=== PATIENT | female | born 1995 | race Caucasian/White ===

== ENCOUNTER 2017-11-23 16:27 | Emergency (ER) | payer OTHER ==
[~2017-11-23] VITALS: Ht 22.9 cm; Wt 76.7 kg
[2017-11-23] MEDS ORDERED: IV NORMAL SALINE 1,000ML 1,000 ML IV ONE (17:00)
[2017-11-23 17:22] LABS: BASO % 0 % (0-3); EOS % 0 % (0-3); HEMATOCRIT 45.6 % (36.0-47.0); HEMOGLOBIN 15.4 g/dL (12.0-15.5); LYMPH # 0.5 x10^3/uL (1.0-4.8); LYMPH % 6 % (24-48); MEAN CORPUSCULAR HEMOGLOBIN 29 pg (25-35); MEAN CORPUSCULAR HGB CONC 34 g/dL (31-37); MEAN CORPUSCULAR VOLUME 87 fL (79-100); MONO # 0.3 x10^3/uL (0.0-1.1); MONO % 3 % (0-9); NEUT # 8.4 x10^3uL (1.8-7.7); NEUT % 91 % (31-73); PLATELET COUNT 226 x10^3/uL (140-400); RED BLOOD COUNT 5.25 x10^6/uL (3.50-5.40); RED CELL DISTRIBUTION WIDTH 13.1 % (11.5-14.5); WHITE BLOOD COUNT 9.2 x10^3/uL (4.0-11.0)
--- NOTE | 2017-11-23 17:38 | ED.ADGEN ---
Past History Past Medical History: Other Additional Past Medical Histor: tachycardia Past Surgical History: No Surgical History Smoking: Non-smoker Alcohol Use: Occasionally Drug Use: None Adult General Chief Complaint Chief Complaint nausea, vomiting, diarrhea HPI HPI Patient is a 22 year old female who presents with nausea, vomiting and diarrhea. Pt states symptoms started earlier this morning, has vomited about 5- 6 times and had 2 watery stools. She only has abdominal cramping with the vomiting, none present at this time. She is not currently feeling nausea. She denies fevers, admits she "doesn't drink much water", denies dysuria or increased frequency. She reports h/o known tachycardia. Came in because she thought she was dehydrated. PCP is Dr. German. Review of Systems Review of Systems Constitutional: Denies fever or chills [] Eyes: Denies change in visual acuity, redness, or eye pain [] HENT: Denies nasal congestion or sore throat [] Respiratory: Denies cough or shortness of breath [] Cardiovascular: denies chest pain GI: per hpi : Denies dysuria or hematuria [] Musculoskeletal: Denies back pain or joint pain [] Integument: Denies rash or skin lesions [] Neurologic: Denies headache, focal weakness or sensory changes [] Current Medications Current Medications Current Medications Medications (Trade) Dose Ordered Sig/Lalitha Start Time Stop Time Status Last Admin Dose Admin Sodium Chloride 1,000 ml @ 1,000 mls/hr 1X ONCE 11/23/17 17:00 11/23/17 17:59 DC 11/23/17 17:12 1,000 MLS/HR Allergies Allergies Allergies Coded Allergies Type Severity Reaction Last Updated Verified No Known Drug Allergies 02/25/14 No Physical Exam Physical Exam Constitutional: Well developed, well nourished, no acute distress, non-toxic appearance. [] HENT: Normocephalic, atraumatic, bilateral external ears normal, oropharynx slightly dry, no oral exudates, nose normal. [] Eyes: PERRLA, EOMI, conjunctiva normal, no discharge. [] Neck: Normal range of motion, no tenderness, supple, no stridor. [] Cardiovascular:Heart rate regular rhythm, no murmur [] Lungs & Thorax: Bilateral breath sounds clear to auscultation [] Abdomen: Bowel sounds normal, soft, no tenderness, no masses, no pulsatile masses. [] Skin: Warm, dry, no erythema, no rash. [] Back: No tenderness, no CVA tenderness. [] Extremities: No tenderness, no cyanosis, no clubbing, ROM intact, no edema. [] Neurologic: Alert and oriented X 3, normal motor function, normal sensory function, no focal deficits noted. [] Psychologic: Affect normal, judgement normal, mood normal. [] Current Patient Data Vital Signs Vital Signs Date Time Temp Pulse Resp B/P (MAP) Pulse Ox O2 Delivery O2 Flow Rate FiO2 11/23/17 17:01 98.3 131 22 95 Room Air Lab Results Laboratory Tests Test 11/23/17 16:50 White Blood Count 9.2 x10^3/uL (4.0-11.0) Red Blood Count 5.25 x10^6/uL (3.50-5.40) Hemoglobin 15.4 g/dL (12.0-15.5) Hematocrit 45.6 % (36.0-47.0) Mean Corpuscular Volume 87 fL (79-100) Mean Corpuscular Hemoglobin 29 pg (25-35) Mean Corpuscular Hemoglobin Concent 34 g/dL (31-37) Red Cell Distribution Width 13.1 % (11.5-14.5) Platelet Count 226 x10^3/uL (140-400) Neutrophils (%) (Auto) 91 % (31-73) H Lymphocytes (%) (Auto) 6 % (24-48) L Monocytes (%) (Auto) 3 % (0-9) Eosinophils (%) (Auto) 0 % (0-3) Basophils (%) (Auto) 0 % (0-3) Neutrophils # (Auto) 8.4 x10^3uL (1.8-7.7) H Lymphocytes # (Auto) 0.5 x10^3/uL (1.0-4.8) L Monocytes # (Auto) 0.3 x10^3/uL (0.0-1.1) Eosinophils # (Auto) 0.0 x10^3/uL (0.0-0.7) Basophils # (Auto) 0.0 x10^3/uL (0.0-0.2) Urine Collection Type Unknown Urine Color Yellow Urine Clarity Hazy Urine pH 7.0 Urine Specific [place] 1.015 Urine Protein 30 mg/dl (NEG-TRACE) Urine Glucose (UA) Neg mg/dL (NEG) Urine Ketones (Stick) Neg mg/dL (NEG) Urine Blood Neg (NEG) Urine Nitrite Neg (NEG) Urine Bilirubin Neg (NEG) Urine Urobilinogen Dipstick 1 mg/dL (0.2 mg/dL) Urine Leukocyte Esterase Trace (NEG) Urine RBC 3-5 /HPF (0-2) Urine WBC 11-20 /HPF (0-4) Urine Squamous Epithelial Cells Many /LPF Urine Bacteria Few /HPF (0-FEW) Urine Mucus Mod /LPF Urine Test Negative (NEG) Sodium Level 139 mmol/L (136-145) Potassium Level 3.4 mmol/L (3.5-5.1) L Chloride Level 101 mmol/L (98-107) Carbon Dioxide Level 25 mmol/L (21-32) Anion Gap 13 (6-14) Blood Urea Nitrogen 14 mg/dL (7-20) Creatinine 0.7 mg/dL (0.6-1.0) Estimated GFR (Cockcroft-Gault) 102.8 Glucose Level 96 mg/dL (70-99) Calcium Level 9.2 mg/dL (8.5-10.1) EKG EKG [] Radiology/Procedures Radiology/Procedures [] Course & Med Decision Making Course & Med Decision Making Pertinent Labs and Imaging studies reviewed. (See chart for details) IV started, NS bolus given, pt did not require antiemetics, RR is not 22 on my exam, it was 16. pt does have h/o tachycardia and is currently present. She shows no signs of distress and certainly does not appear septic. Labs obtained along with urine and ucg. Heart rate almost immediately improved to 110. No leukocytosis. No active vomiting in the ED, no diarrhea. Pt dc'd with RX for zofran in case vomiting returns. Recommend f/u with PCP and return precautions given. Final Impression Final Impression Viral gastroenteritis[] Problems: Dragon Disclaimer Dragon Disclaimer This electronic medical record was generated, in whole or in part, using a voice recognition dictation system. ANGELA REYNAGA MD Nov 23, 2017 17:38
[2017-11-23 17:43] LABS: BACTERIA,URINE FEW /HPF (0-FEW); BILIRUBIN,URINE NEG (NEG); CLARITY,URINE HAZY; COLOR,URINE YELLOW; GLUCOSE,URINE NEG (NEG); NITRITE,URINE NEG (NEG); SQUAMOUS EPITHELIAL CELL,UR MANY /LPF; UROBILINOGEN,URINE 1 mg/dL (0.2 mg/dL)
[2017-11-23 17:45] LABS: CALCIUM 9.2 mg/dL (8.5-10.1); CREATININE 0.7 mg/dL (0.6-1.0); GFR 102.8; POTASSIUM 3.4 mmol/L (3.5-5.1)
[2017-11-23] MEDS ORDERED: ONDA4TAB7 PO (17:53)
[2017-11-23 17:57] LABS: U PREG PATIENT NEGATIVE (NEG)
[2017-11-23 18:06] VITALS: BP 121/76
== END 2017-11-23 18:07 | disposition home or self-care (01) ==
LOC: ER 16:27
DX: A08.4 Viral intestinal infection, unspecified (principal)
CPT/HCPCS: 36415; 80048; 81001; 81025; 85025; 87086; 96360; 99284-25; J7030

== ENCOUNTER 2020-09-18 12:54 | Emergency (ER) | payer OTHER ==
[~2020-09-18] VITALS: Ht 175.3 cm; Wt 66.9 kg
[~2020-09-18 12:54] MED LIST: ONDA4TAB7 PO
[2020-09-18 13:34] VITALS: BP 125/69
[2020-09-18] MEDS ORDERED: methylPREDNISolone ACETATE 40 MG/ML VIAL. IM ONE (15:15)
[2020-09-18] MEDS ORDERED: CYCL-331 PO (15:16)
--- NOTE | 2020-09-18 15:16 | PHYS DOC ---
Past History Past Medical History: Bipolar, Other Additional Past Medical Histor: tachycardia Past Surgical History: No Surgical History Smoking: Non-smoker Alcohol Use: Occasionally Drug Use: None Adult General Chief Complaint Chief Complaint: BACK INJURY [facility] HPI Patient is a 25 year old female patient presenting with lower back pain. Patient reports she had been walking last week, when she has the slipped on some ice, twisting her back. She states she did not fall she had just caught herself as she had slid. States she does have history of lower back pain with a bulging disc for which she had had a prior MRI. States she has been told she will eventually need surgery on this however she has not made arrangements to have this done yet. States yesterday she had a sneezing episode, which she gets when she smells new fragment candles, which she had also done yesterday, and she started to experience some sharp lower back pain with pain shooting into her left leg, posteriorly. States no loss of bowel or bladder, states she is able to walk, however she does feels like discomfort in her left hip and lower back. States she did not fall, she had just slipped and remain standing. States she had been taking some Aleve, which helped helped her discomfort somewhat. States she is continues to feel a burning pain in her left leg shooting down from her hip to her thigh. Review of Systems Review of Systems Constitutional: Denies fever or chills [] Eyes: Denies change in visual acuity, redness, or eye pain [] HENT: Denies nasal congestion or sore throat [] Respiratory: Denies cough or shortness of breath [] Cardiovascular: No additional information not addressed in HPI [] GI: Denies abdominal pain, nausea, vomiting, bloody stools or diarrhea [] : Denies dysuria or hematuria [] Musculoskeletal: Complains of lower back pain, with pain into left hip. Integument: Denies rash or skin lesions [] Neurologic: Denies headache, focal weakness or sensory changes [] Endocrine: Denies polyuria or polydipsia [] All other systems were reviewed and found to be within normal limits, except as documented in this note. Allergies Allergies Allergies Coded Allergies Type Severity Reaction Last Updated Verified No Known Drug Allergies 02/25/14 No Physical Exam Physical Exam Constitutional: Well developed, well nourished, no acute distress, non-toxic appearance. [] HENT: Normocephalic, atraumatic, bilateral external ears normal, oropharynx moist, no oral exudates, nose normal. [] Eyes: PERRLA, EOMI, conjunctiva normal, no discharge. [] Neck: Normal range of motion, no tenderness, supple, no stridor. [] Cardiovascular:Heart rate regular rhythm, no murmur [] Lungs & Thorax: Bilateral breath sounds clear to auscultation [] Abdomen: Bowel sounds normal, soft, no tenderness, no masses, no pulsatile masses. [] Skin: Warm, dry, no erythema, no rash. [] Back: No tenderness, no CVA tenderness. [] Tenderness to palpation to lower back muscles without tenderness or discomfort over bony prominences Extremities: No tenderness, no cyanosis, no clubbing, ROM intact, no edema. [] Forage motion. Able to raise legs, no paresthesias with movement, ambulates, Neurologic: Alert and oriented X 3, normal motor function, normal sensory function, no focal deficits noted. [] Psychologic: Affect normal, judgement normal, mood normal. [] Current Patient Data Vital Signs Vital Signs Date Time Temp Pulse Resp B/P (MAP) Pulse Ox O2 Delivery O2 Flow Rate FiO2 09/18/20 13:34 98.7 89 16 125/69 (87) 99 Room Air EKG EKG [] Radiology/Procedures Radiology/Procedures [] Heart Score Risk Factors: Risk Factors: DM, Current or recent (<one month) smoker, HTN, HLP, family history of CAD, obesity. Risk Scores: Risk Factors: DM, Current or recent (<one month) smoker, HTN, HLP, family history of CAD, obesity. Course & Med Decision Making Course & Med Decision Making Pertinent Labs and Imaging studies reviewed. (See chart for details) [] With a history of fall, and discomfort located over muscles, patient in agreement to not perform imaging at this time. Will recommend patient follow-up with primary care, provide steroids and muscle relaxers, with recommendation to continue NSAIDs for discomfort and and inflammation Dragon Disclaimer Dragon Disclaimer This electronic medical record was generated, in whole or in part, using a voice recognition dictation system. Departure Departure: Impression: Primary Impression: Low back pain Additional Impressions: Lumbar radiculopathy Muscle spasm Disposition: 01 DC HOME SELF CARE/HOMELESS Condition: GOOD Referrals: HOWARD,LAURIE DO (PCP) Patient Instructions: Low Back Strain with Rehab-[facility], Sciatica, [id number] Additional Instructions: As we discussed, take the muscle relaxers with caution as they can make you sleepy. Do not take them prior to driving or working. You may take Aleve (440 mg) every 12 hours. Take this with food. Follow up with your primary care provider in the next week to evaluate for improvement. Scripts Cyclobenzaprine Hcl (CYCLOBENZAPRINE HCL) 10 Mg Tablet 10 MG PO Q8HRS for muscle spasm for 5 Days, #15 TAB Prov: RAMIRO REYNA APRN 09/18/20 Problem Qualifiers Primary Impression: Low back pain Chronicity: acute Back pain laterality: left Sciatica presence: with sciatica Sciatica laterality: sciatica of left side Qualified Codes: M54.42 - Lumbago with sciatica, left side RAMIRO REYNA APRN Sep 18, 2020 15:16
== END 2020-09-18 15:33 | disposition home or self-care (01) ==
LOC: ER 12:54
DX: M54.16 Radiculopathy, lumbar region (principal); M54.42 Lumbago with sciatica, left side; M62.830 Muscle spasm of back; F31.9 Bipolar disorder, unspecified
CPT/HCPCS: 96372; 99283; J1030